=== PATIENT | female | born 1950 | race Native Hawaiian/Other Pacific Islander ===

== ENCOUNTER 2022-01-28 16:54 | Outpatient (CLI) | payer OTHER ==
[2022-01-28 17:09] LABS: PLATELET COUNT 346 K/uL (152-353)
== END 2022-01-28 19:07 | disposition home or self-care (01) ==
LOC: LABW 16:54
PROVIDERS: ATTEND Nurse Practitioner Family
DX: R07.89 Other chest pain (principal)
CPT/HCPCS: 36415; 80053; 82550; 82553; 83880; 84484; 85027; 85379